=== PATIENT | female | born 1990 | race Caucasian/White ===

== ENCOUNTER → 2022-03-07 | Outpatient (CLI) | payer SELFPAY | END | disposition home or self-care (01) | LOC: EDBD 15:08 → US 15:08 | PROVIDERS: ATTEND Internal Medicine Critical Care Medicine | DX: O00.91 Unspecified ectopic pregnancy with intrauterine pregnancy (principal); Z3A.01 Less than 8 weeks gestation of pregnancy | CPT/HCPCS: 76801 ==

== ENCOUNTER → 2023-09-05 | Day surgery (SDC) | payer SELFPAY | END | disposition home or self-care (01) | LOC: LAB 09-04 12:30 → EDSTATUS 12:32 | PROVIDERS: ATTEND Internal Medicine Critical Care Medicine | DX: O00.01 Abdominal pregnancy with intrauterine pregnancy (principal); Z3A.01 Less than 8 weeks gestation of pregnancy | CPT/HCPCS: 36415; 76801; 84702 ==